=== PATIENT | female | born 1990 | race Caucasian/White ===

== ENCOUNTER 2017-09-14 17:23 | Emergency (ER) | payer SELFPAY ==
[~2017-09-14] VITALS: Ht 172.7 cm; Wt 64.4 kg
[2017-09-14 17:41] VITALS: BP 143/94
--- NOTE | 2017-09-14 19:26 | NUR ---
PATIENT LEFT WITHOUT BEING SEEN BY DR. Medina. NO FURTHER CARE PROVIDED FOR PATIENT.
== END 2017-09-14 19:26 | disposition left against medical advice (07) ==
LOC: MED 17:23
DX: F41.9 Anxiety disorder, unspecified (principal); Z53.21 Procedure and treatment not carried out due to patient leaving prior to being seen by health care provider